=== PATIENT | male | born 1945 | race Caucasian/White ===

== ENCOUNTER 2017-05-08 13:56 | Emergency (ER) | payer BC ==
--- NOTE | 2017-05-08 14:32 | EDM.PDOC ---
ED HPI GENERAL MEDICAL PROBLEM - General Chief Complaint: Neurological Problem Stated Complaint: RT SIDE OF FACE NUMB Time Seen by Provider: 05/08/17 14:21 Source of Information: Reports: Patient History Limitations: Reports: No Limitations - History of Present Illness INITIAL COMMENTS - FREE TEXT/NARRATIVE: History of present illness: [71-year-old male presenting with complaints of right-sided facial numbness. Patient indicates this started on Tuesday less than 48 hours ago where he noticed that the right side of his face just started drooping and was slightly numb. He indicated that it was limited to his face that he had complete strength and movement in his right arm and his right leg and the only deficit was the sensation and or presentation of his face.] Review of systems: As per history of present illness and below otherwise all systems reviewed and negative. Past medical history: As per history of present illness and as reviewed below otherwise noncontributory. Surgical history: As per history of present illness and as reviewed below otherwise noncontributory. Social history: No reported history of drug or alcohol abuse. Family history: As per history of present illness and as reviewed below otherwise noncontributory. Physical exam: HEENT: Atraumatic, right-sided facial droop pupils reactive, negative for conjunctival pallor or scleral icterus, mucous membranes moist, throat clear, neck supple, nontender, trachea midline. Lungs: Clear to auscultation, breath sounds equal bilaterally, chest nontender. Heart: S1S2, regular, negative for clicks, rubs, or JVD. Abdomen: Soft, nondistended, nontender. Negative for masses or hepatosplenomegaly. Negative for costovertebral tenderness. Pelvis: Stable nontender. Genitourinary: Deferred. Rectal: Deferred. Extremities: Atraumatic, negative for cords or calf pain. Neurovascular unremarkable. Neuro: Awake, alert, oriented. Right sided facial droop with decreased sensation , otherwise neuro evaluation unremarkable. Motor and sensory unremarkable throughout. Exam nonfocal. 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 - Related Data Allergies Allergy/AdvReac Type Severity Reaction Status Date / Time No Known Allergies Allergy Verified 05/08/17 14:12 Home Meds: Home Meds Empagliflozin/Linagliptin [Glyxambi 25 mg-5 mg Tablet] 1 tab PO DAILY 05/08/17 [ History] Losartan [Cozaar] 1 tab PO DAILY 05/08/17 [History] atorvaSTATin [Lipitor] 1 tab PO DAILY 05/08/17 [History] metFORMIN [Glucophage XR] 1 tab PO DAILY 05/08/17 [History] predniSONE [Prednisone] 80 mg PO DAILY #28 tablet 05/08/17 [Rx] Past Medical History Cardiovascular History: Reports: High Cholesterol, Hypertension Endocrine/Metabolic History: Reports: Diabetes, Type II - Infectious Disease History Infectious Disease History: Reports: Chicken Pox, Measles, Mumps Social & Family History - Family History Family Medical History: Noncontributory - Tobacco Use Smoking Status *Q: Never Smoker - Caffeine Use Caffeine Use: Reports: Coffee - Recreational Drug Use Recreational Drug Use: No ED ROS GENERAL - Review of Systems Review Of Systems: See Below (See history of present illness) ED EXAM, GENERAL - Physical Exam Exam: See Below (History of present illness) Course - Vital Signs Last Recorded V/S: Last Vital Signs Temp 35.3 C 05/08/17 14:07 Pulse 75 05/08/17 14:07 Resp 16 05/08/17 14:07 BP 147/65 H 05/08/17 14:07 Pulse Ox 95 05/08/17 14:07 - Orders/Labs/Meds Orders: Active Orders 24 hr Category Date Time Status EKG Documentation Completion [RC] STAT Care 05/08/17 14:15 Ordered Head wo Cont [CT] Stat Exams 05/08/17 14:15 Ordered CBC WITH AUTO DIFF [HEME] Stat Lab 05/08/17 14:15 Ordered COMPREHENSIVE METABOLIC PN,CMP [CHEM] Stat Lab 05/08/17 14:15 Ordered INR,PT,PROTHROMBIN TIME [COAG] Stat Lab 05/08/17 14:15 Ordered PTT,PARTIAL THROMBOPLSTIN TIME [COAG] Stat Lab 05/08/17 14:15 Ordered TROPONIN I [CHEM] Stat Lab 05/08/17 14:15 Ordered Peripheral IV Insertion Adult [OM.PC] Stat Oth 05/08/17 14:15 Ordered Departure - Departure Time of Disposition: 15:35 Disposition: Home, Self-Care 01 Condition: Good Clinical Impression: Guidry's palsy - Discharge Information Referrals: PCP,None [Primary Care Provider] - Additional Instructions: The following information is given to patients seen in the emergency department who are being discharged to home. This information is to outline your options for follow-up care. We provide all patients seen in our emergency department with a follow-up referral. The need for follow-up, as well as the timing and circumstances, are variable depending upon the specifics of your emergency department visit. If you don't have a primary care physician on staff, we will provide you with a referral. We always advise you to contact your personal physician following an emergency department visit to inform them of the circumstance of the visit and for follow-up with them and/or the need for any referrals to a consulting specialist. The emergency department will also refer you to a specialist when appropriate. This referral assures that you have the opportunity for follow-up care with a specialist. All of these measure are taken in an effort to provide you with optimal care, which includes your follow-up. Under all circumstances we always encourage you to contact your private physician who remains a resource for coordinating your care. When calling for follow-up care, please make the office aware that this follow-up is from your recent emergency room visit. If for any reason you are refused follow-up, please contact the [facility] Emergency Department at and asked to speak to the emergency department charge nurse. Take medication as directed Follow-up with PCP in 3-5 days Return to ED as needed as discussed - My Orders Last 24 Hours: My Active Orders 05/08/17 14:15 EKG Documentation Completion [RC] STAT Head wo Cont [CT] Stat CBC WITH AUTO DIFF [HEME] Stat COMPREHENSIVE METABOLIC PN,CMP [CHEM] Stat INR,PT,PROTHROMBIN TIME [COAG] Stat PTT,PARTIAL THROMBOPLSTIN TIME [COAG] Stat TROPONIN I [CHEM] Stat Peripheral IV Insertion Adult [OM.PC] Stat - Assessment/Plan Last 24 Hours: My Active Orders 05/08/17 14:15 EKG Documentation Completion [RC] STAT Head wo Cont [CT] Stat CBC WITH AUTO DIFF [HEME] Stat COMPREHENSIVE METABOLIC PN,CMP [CHEM] Stat INR,PT,PROTHROMBIN TIME [COAG] Stat PTT,PARTIAL THROMBOPLSTIN TIME [COAG] Stat TROPONIN I [CHEM] Stat Peripheral IV Insertion Adult [OM.PC] Stat
[2017-05-08 14:54] LABS: CHLORIDE,CL 105 mmol/L (98-110); SODIUM,NA 139 mmol/L (136-146)
[2017-05-08] MEDS ORDERED: predniSONE 20 MG Tab PO ONE (15:32)
--- NOTE | 2017-05-09 15:23 | CT ---
EXAM DATE: 05/08/17 PATIENT'S AGE: 71 Patient: OLIVIA DOVE Facility: [place], [place] Site . Site : [id number] Study: CT Head [id number] 2:37:27 PM Ordering Physician: Doctor Nugent Final Report: Indication: FACIAL NUMBNESS Comparison: None available. Technique: Multiple sequential axial images from the foramen magnum to the vertex were obtained without IV contrast. Findings: No evidence of mass effect, midline shift, or extra-axial fluid collection. No evidence of space-occupying lesion or intracranial hemorrhage. No evidence of an acute cortical-based area of infarction. Ventricles and sulci are only mildly prominent when accounting for patient age. Basal cisterns are patent. Intracranial vascular calcifications are seen. 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 There is polypoid thickening of the inferior maxillary sinus on the left. The remainder of the maxillary sinuses are clear. The patient is edentulous in the maxillary portion of the oropharynx. Dense pineal gland, and choroid plexus calcifications. Visualized portions of the orbits, and mastoid air cells are unremarkable. Impression: No acute intracranial process. Please note that all CT scans at this facility use dose modulation, iterative reconstruction, and/or weight-based dosing when appropriate to reduce radiation dose to as low as reasonably achievable. Dictated by Carlitos Rivera MD @ May 08 2017 3:08PM (Electronic Signature) Report Signed by Proxy. [facility]
== END 2017-05-08 16:06 | disposition home or self-care (01) ==
LOC: MW.ED 13:56
DX: G51.0 Bell's palsy (principal); I10 Essential (primary) hypertension; E11.9 Type 2 diabetes mellitus without complications; Z79.899 Other long term (current) drug therapy
CPT/HCPCS: 36415; 70450; 80053; 84484; 85025; 85610; 85730; 93005; 99284; A9270; 99282